=== PATIENT | female | born 1940 | race Caucasian/White ===

== ENCOUNTER 2018-06-02 13:50 | Observation (INO) | payer MEDICARE, BC ==
[2018-06-02] MEDS ORDERED: Promethazine 25 MG in Sodium Chloride 0.9% 50 ML IV STA (14:12)
[2018-06-02] MEDS: Sodium Chloride 0.9% 1,000 ML IV SCH (14:22)
[2018-06-02 14:44] LABS: CHLORIDE,CL 107 mEq/L (98-106); SODIUM,NA 143 mEq/L (136-145)
[2018-06-02] MEDS ORDERED: Promethazine 12.5 MG in Sodium Chloride 0.9% 50 ML IV PRN (15:41)
[2018-06-02] MEDS: Meclizine 12.5 MG Tab PO PRN ×2 (16:14→20:13)
[2018-06-02] MEDS ORDERED: Warfarin 2.5 MG Tab ONE (16:29)
[2018-06-02] MEDS ORDERED: Warfarin 5 MG Tab **OWN MED PO ONE (17:00)
--- NOTE | 2018-06-02 18:04 | EDM.PDOC ---
ED HPI GENERAL MEDICAL PROBLEM - General Chief Complaint: General Stated Complaint: dizziness, vomiting Time Seen by Provider: 06/02/18 14:34 Source of Information: Reports: Patient History Limitations: Reports: No Limitations - History of Present Illness INITIAL COMMENTS - FREE TEXT/NARRATIVE: Tabatha is a 78 yo female who presents to the ER via [facility] with complaints of dizziness, nausea, and vomiting. She admits to chronic dizziness but today after lunch it has progressively worsened. She states she feels as if the room is spinning. She states she continues to dry heave from the dizziness. Denies any chest discomfort, palpitations in her chest, shortness of breath, headache or any other contributory symptoms. See ROS. Onset: Today Duration: Getting Worse Location: Reports: Head Associated Symptoms: Reports: Nausea/Vomiting. 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 Zofran 4 mg IV x 2. - Related Data Allergies Allergy/AdvReac Type Severity Reaction Status Date / Time No Known Allergies Allergy Verified 06/02/18 13:49 Home Meds: Home Meds Levothyroxine 112 mcg PO DAILY 04/07/14 [History] Furosemide [Lasix] 20 mg PO DAILY 04/30/14 [History] Cholecalciferol (Vitamin D3) [Vitamin D3] 5,000 units PO DAILY 04/16/15 [History ] atorvaSTATin Calcium [Atorvastatin Calcium] 10 mg PO BEDTIME 04/16/15 [History] Aspirin [Adult Low Dose Aspirin EC] 81 mg PO DAILY 04/25/16 [History] Metoprolol Succinate 25 mg PO DAILY 04/25/16 [History] Warfarin [Coumadin] 2.5 mg PO DAILY 09/02/16 [History] Cetirizine HCl [Zyrtec] 10 mg PO DAILY PRN 06/02/18 [History] Losartan [Cozaar] 25 mg PO DAILY 06/02/18 [History] Vortioxetine Hydrobromide [Trintellix] 10 mg PO DAILY 06/02/18 [History] Past Medical History HEENT History: Reports: Cataract Cardiovascular History: Reports: Blood Clots/VTE/DVT, Hypertension Respiratory History: Reports: PE Genitourinary History: Reports: Urinary Incontinence Musculoskeletal History: Reports: Arthritis Other Musculoskeletal History: R knee Endocrine/Metabolic History: Reports: Hyperthyroidism - Past Surgical History HEENT Surgical History: Reports: Cataract Surgery Cardiovascular Surgical History: Reports: Coronary Artery Stent Musculoskeletal Surgical History: Reports: Knee Replacement Social & Family History - Family History Family Medical History: Noncontributory - Tobacco Use Smoking Status *Q: Former Smoker Used Tobacco, but Quit: Yes Month/Year Tobacco Last Used: unknown - Recreational Drug Use Recreational Drug Use: No ED ROS GENERAL - Review of Systems Review Of Systems: See Below Constitutional: Denies: Fever, Chills, Decreased Appetite HEENT: Reports: Vertigo. Denies: Ear Discharge, Ear Pain, Sinus Problem, Vision Change Respiratory: Reports: No Symptoms Cardiovascular: Reports: No Symptoms. Denies: Chest Pain, Lightheadedness, Palpitations, Syncope GI/Abdominal: Reports: No Symptoms : Reports: No Symptoms. Denies: Discharge, Dysuria, Hematuria, Urgency Musculoskeletal: Reports: No Symptoms Neurological: Denies: Confusion, Headache, Numbness, Paresthesia, Syncope, Tingling Psychiatric: Reports: No Symptoms ED EXAM, GENERAL - Physical Exam Exam: See Below General Appearance: Alert, Mild Distress Eye Exam: Bilateral Eye: EOMI, Normal Inspection, PERRL Ears: Normal External Exam, Normal Canal, Hearing Grossly Normal, Normal TMs Nose: Normal Inspection, No Blood Throat/Mouth: Normal Inspection, Normal Gums, Normal Oropharynx, Normal Voice, No Airway Compromise Head: Atraumatic, Normocephalic Neck: Normal Inspection, Supple Respiratory/Chest: No Respiratory Distress, Lungs Clear, Normal Breath Sounds, No Accessory Muscle Use Cardiovascular: Regular Rate, Rhythm, No Murmur Peripheral Pulses: 2+: Posterior Tibial (L), Posterior Tibial (R), Dorsalis Pedis (L), Dorsalis Pedis (R) GI/Abdominal: Normal Bowel Sounds, Soft, No Organomegaly, No Distention Neurological: Alert, Oriented, CN II-XII Intact, Normal Cognition, No Motor/ Sensory Deficits Psychiatric: Normal Affect, Normal Mood Skin Exam: Warm, Dry, Intact, Normal Color, No Rash EKG INTERPRETATION Rhythm: NSR Course - Vital Signs Last Recorded V/S: Last Vital Signs Temp 97.7 F 06/02/18 16:00 Pulse 68 06/02/18 16:00 Resp 16 06/02/18 16:00 BP 115/48 L 06/02/18 16:00 Pulse Ox 98 06/02/18 16:00 - Orders/Labs/Meds Orders: Active Orders 24 hr Category Date Time Status Patient Status [ADT] Routine ADT 06/02/18 15:41 Active Cardiac Monitoring [RC] 0800,1999 Care 06/02/18 15:41 Active Oxygen Therapy [RC] .PRN Care 06/02/18 15:41 Active Up With Assistance [RC] .PRN Care 06/02/18 15:41 Active Vital Signs [RC] 0000,0400,0800,1200,1600,1999 Care 06/02/18 15:41 Active PT Evaluation and Treatment [CONS] Routine Cons 06/02/18 15:41 Active 2 Gram Sodium Diet [DIET] Diet 06/02/18 Dinner Active UA W/MICROSCOPIC [URIN] Stat Lab 06/02/18 14:13 Ordered Promethazine [Phenergan] 12.5 mg Med 06/02/18 15:41 Active Sodium Chloride 0.9% [Normal Saline] 50 ml IV Q6H Sodium Chloride 0.9% [Normal Saline] 1,000 ml Med 06/02/18 14:15 Active IV ASDIRECTED Resuscitation Status Routine Resus Stat 06/02/18 15:33 Ordered Medication Orders Aspirin (Halfprin) 81 mg PO DAILY [facility] Atorvastatin Calcium (Lipitor) 10 mg PO BEDTIME [facility] Furosemide (Lasix) 20 mg PO DAILY [facility] Sodium Chloride (Normal Saline) 1,000 mls @ 75 mls/hr IV ASDIRECTED [facility] Last Admin: 06/02/18 14:22 Dose: 75 mls/hr Promethazine HCl 12.5 mg/ (Sodium Chloride) 50.5 mls @ 100 mls/hr IV Q6H PRN PRN Reason: Nausea/Vomiting Levothyroxine Sodium (Levothyroxine) 112 mcg PO ACBRK [facility] Losartan Potassium (Cozaar) 25 mg PO DAILY [facility] Meclizine HCl (Antivert) 25 mg PO TID PRN PRN Reason: Dizziness Last Admin: 06/02/18 16:14 Dose: 25 mg Metoprolol Succinate (Toprol Xl) 25 mg PO DAILY [facility] Vortioxetine Hydrobromide ( Trintellix) 10 Mg Tab Own Med 0 mg PO DAILY [facility] Vitamin D 5000 Unit (Softgels Own Med) 0 each PO DAILY [facility] Warfarin Sodium (Coumadin) 2.5 mg PO DAILY@1200 [facility] Labs: Laboratory Tests 06/02/18 06/02/18 06/02/18 Range/Units 14:20 14:22 14:22 WBC 7.5 (5.0-10.0) 10^3/uL RBC 4.21 (4.00-5.50) 10^6/uL Hgb 12.3 (12.0-16.0) g/dL Hct 38.5 (37.0-47.0) % MCV 91.4 (82.0-94.0) fL MCH 29.2 (27.0-32.0) pg MCHC 31.9 L (33.0-38.0) g/dL RDW Coeff of Ltey 16.5 H (11.0-15.0) % Plt Count 242 (150-400) 10^3/uL Add Manual Diff Yes Neutrophils % (Manual) 67 (35-85) % Lymphocytes % (Manual) 25 (21-55) % Monocytes % (Manual) 8 (2-12) % Absolute Neutrophils 5.03 (1.80-7.00) 10^3/uL Lymphocytes # (Manual) 1.88 (1.00-4.80) 10^3/uL Monocytes # (Manual) 0.60 (0.00-0.80) 10^3/uL PT (9.7-12.3) SEC INR (0.92-1.18) Sodium 143 (136-145) mEq/L Potassium 3.9 (3.5-5.0) mEq/L Chloride 107 H (98-106) mEq/L Carbon Dioxide 24 (21-32) mmol/L BUN 35 H (7-18) mg/dL Creatinine 1.3 H (0.6-1.0) mg/dL Est Cr Clr Drug Dosing 27.75 mL/min Estimated GFR (MDRD) 40 L (>=60) mL/min Glucose 135 H (75-99) mg/dL Calcium 9.1 (8.4-10.1) mg/dL Total Bilirubin 1.0 (0.0-1.0) mg/dL AST 20 (15-37) U/L ALT 25 (12-78) U/L Alkaline Phosphatase 107 (46-116) U/L Creatine Kinase 34 (21-215) U/L Troponin I < 0.017 (0.00-0.06) ng/mL C-Reactive Protein 0.8 (0.2-0.8) mg/dL Total Protein 7.5 (6.4-8.2) g/dL Albumin 3.6 (3.4-5.0) g/dL Free T4 1.5 (0.8-1.6) ng/dL TSH, Ultra Sensitive 0.48 (0.36-5.60) uIU/mL 06/02/18 Range/Units 14:42 WBC (5.0-10.0) 10^3/uL RBC (4.00-5.50) 10^6/uL Hgb (12.0-16.0) g/dL Hct (37.0-47.0) % MCV (82.0-94.0) fL MCH (27.0-32.0) pg MCHC (33.0-38.0) g/dL RDW Coeff of Lety (11.0-15.0) % Plt Count (150-400) 10^3/uL Add Manual Diff Neutrophils % (Manual) (35-85) % Lymphocytes % (Manual) (21-55) % Monocytes % (Manual) (2-12) % Absolute Neutrophils (1.80-7.00) 10^3/uL Lymphocytes # (Manual) (1.00-4.80) 10^3/uL Monocytes # (Manual) (0.00-0.80) 10^3/uL PT 14.4 H (9.7-12.3) SEC INR 1.42 H (0.92-1.18) Sodium (136-145) mEq/L Potassium (3.5-5.0) mEq/L Chloride (98-106) mEq/L Carbon Dioxide (21-32) mmol/L BUN (7-18) mg/dL Creatinine (0.6-1.0) mg/dL Est Cr Clr Drug Dosing mL/min Estimated GFR (MDRD) (>=60) mL/min Glucose (75-99) mg/dL Calcium (8.4-10.1) mg/dL Total Bilirubin (0.0-1.0) mg/dL AST (15-37) U/L ALT (12-78) U/L Alkaline Phosphatase (46-116) U/L Creatine Kinase (21-215) U/L Troponin I (0.00-0.06) ng/mL C-Reactive Protein (0.2-0.8) mg/dL Total Protein (6.4-8.2) g/dL Albumin (3.4-5.0) g/dL Free T4 (0.8-1.6) ng/dL TSH, Ultra Sensitive (0.36-5.60) uIU/mL Meds: Medications Generic Name Dose Route Start Last Admin Trade Name Freq PRN Reason Stop Dose Admin Aspirin 81 mg 06/03/18 08:00 Halfprin PO DAILY [facility] Atorvastatin Calcium 10 mg 06/02/18 20:00 Lipitor PO BEDTIME [facility] Furosemide 20 mg 06/03/18 08:00 Lasix PO DAILY [facility] Sodium Chloride 1,000 mls @ 75 mls/hr 06/02/18 14:15 06/02/18 14:22 Normal Saline IV 75 mls/hr ASDIRECTED [facility] Administration Promethazine HCl 12.5 mg/ 50.5 mls @ 100 mls/hr 06/02/18 15:41 Sodium Chloride IV Q6H PRN Nausea/Vomiting Levothyroxine Sodium 112 mcg 06/03/18 07:00 Levothyroxine PO ACBRK [facility] Losartan Potassium 25 mg 06/03/18 08:00 Cozaar PO DAILY [facility] Meclizine HCl 25 mg 06/02/18 15:48 06/02/18 16:14 Antivert PO 25 mg TID PRN Administration Dizziness Metoprolol Succinate 25 mg 06/03/18 08:00 Toprol Xl PO DAILY [facility] Vortioxetine 0 mg 06/03/18 08:00 Hydrobromide ( PO Trintellix) 10 Mg DAILY [facility] Tab Own Med Vitamin D 5000 Unit 0 each 06/03/18 08:00 Softgels Own Med PO DAILY [facility] Warfarin Sodium 2.5 mg 06/03/18 12:00 Coumadin PO DAILY@1200 [facility] Discontinued Medications Generic Name Dose Route Start Last Admin Trade Name Freq PRN Reason Stop Dose Admin Promethazine HCl 25 mg/ Sodium 51 mls @ 100 mls/hr 06/02/18 14:12 06/02/18 14 :27 Chloride IV 06/02/18 14:42 100 mls/hr NOW STA Administration Warfarin Sodium 2.5 mg 06/02/18 17:00 06/02/18 16:51 Coumadin PO 06/02/18 17:01 2.5 mg ONETIME ONE Administration Warfarin Sodium Confirm 06/02/18 16:29 06/02/18 16:51 Coumadin Administered 06/02/18 16:30 2.5 mg Dose Administration 2.5 mg .ROUTE .STK-MED ONE Departure - Departure Time of Disposition: 18:14 Disposition: Refer to Observation Clinical Impression: Vertigo - Discharge Information - Problem List & Annotations (1) Vertigo SNOMED Code(s): 817613881 Code(s): R42 - DIZZINESS AND GIDDINESS Status: Acute Current Visit: Yes - My Orders Last 24 Hours: My Active Orders 06/02/18 14:13 UA W/MICROSCOPIC [URIN] Stat 06/02/18 14:15 Sodium Chloride 0.9% [Normal Saline] 1,000 ml IV ASDIRECTED 06/02/18 15:33 Resuscitation Status Routine 06/02/18 15:41 Patient Status [ADT] Routine Cardiac Monitoring [RC] 0800,2000 Oxygen Therapy [RC] .PRN Up With Assistance [RC] .PRN Vital Signs [RC] 0000,0400,0800,1200,1600,2000 PT Evaluation and Treatment [CONS] Routine Promethazine [Phenergan] 12.5 mg Sodium Chloride 0.9% [Normal Saline] 50 ml IV Q6H 06/02/18 Dinner 2 Gram Sodium Diet [DIET] - Assessment/Plan Admission H&P: Please use this note as an admission H&P Last 24 Hours: My Active Orders 06/02/18 14:13 UA W/MICROSCOPIC [URIN] Stat 06/02/18 14:15 Sodium Chloride 0.9% [Normal Saline] 1,000 ml IV ASDIRECTED 06/02/18 15:33 Resuscitation Status Routine 06/02/18 15:41 Patient Status [ADT] Routine Cardiac Monitoring [RC] 0800,2000 Oxygen Therapy [RC] .PRN Up With Assistance [RC] .PRN Vital Signs [RC] 0000,0400,0800,1200,1600,2000 PT Evaluation and Treatment [CONS] Routine Promethazine [Phenergan] 12.5 mg Sodium Chloride 0.9% [Normal Saline] 50 ml IV Q6H 06/02/18 Dinner 2 Gram Sodium Diet [DIET] Plan: Cardiac work up negative. Will admit to Dr. Patel's services under observation for vertigo. Telemetry ordered. Will initiate Meclizine and canalith reposition. IV fluids at 75ml's/hr.
[2018-06-02] MEDS: atorvaSTATin 10 MG Tab **OWN MED PO SCH (20:10)
[2018-06-03] MEDS: Sodium Chloride 0.9% 1,000 ML IV SCH (03:19)
[2018-06-03] MEDS: Levothyroxine 112 MCG Tab **OWN MED PO SCH (06:06)
[2018-06-03] MEDS ORDERED: Furosemide 20 MG Tab PO SCH (08:00)
[2018-06-03] MEDS: Meclizine 12.5 MG Tab PO PRN (08:22)
[2018-06-03] MEDS: Losartan 25 MG Tab **OWN MED PO SCH (08:24)
[2018-06-03] MEDS: Aspirin 81 MG Tab.EC **OWN MED PO SCH (08:24)
[2018-06-03] MEDS: VITAMIN D 5000 UNIT PO SCH (08:25)
[2018-06-03] MEDS: Metoprolol Succinate 25 MG Tab.ER **OWN MED PO SCH (08:25)
[2018-06-03] MEDS: VORTIOXETINE HYDROBROMIDE 10 MG PO SCH (08:26)
[2018-06-03] MEDS: Warfarin 5 MG Tab **OWN MED PO SCH (11:37)
--- NOTE | 2018-06-03 14:43 | PCM.PN ---
- General Info Date of Service: 06/03/18 Functional Status: Reports: Pain Controlled - Review of Systems General: Denies: Fever HEENT: Reports: No Symptoms Pulmonary: Denies: Shortness of Breath, Cough Cardiovascular: Denies: Chest Pain Gastrointestinal: Denies: Abdominal Pain, Nausea, Vomiting Neurological: Reports: Dizziness (reports dizziness is markedly decreased from admit. denies any other new concerns.) - Patient Data Vitals - Most Recent: Last Vital Signs Temp 37.1 C 06/03/18 12:00 Pulse 76 06/03/18 12:00 Resp 16 06/03/18 12:00 BP 110/62 06/03/18 12:00 Pulse Ox 95 06/03/18 12:00 Weight - Most Recent: 65.771 kg I&O - Last 24 Hours: Intake & Output 06/02/18 06/03/18 06/03/18 22:59 06:59 14:59 Intake Total 971 Balance 971 Lab Results Last 24 Hours: Laboratory Results - last 24 hr 06/02/18 06/02/18 06/02/18 Range/Units 14:20 14:22 14:22 WBC 7.5 (5.0-10.0) 10^3/uL RBC 4.21 (4.00-5.50) 10^6/uL Hgb 12.3 (12.0-16.0) g/dL Hct 38.5 (37.0-47.0) % MCV 91.4 (82.0-94.0) fL MCH 29.2 (27.0-32.0) pg MCHC 31.9 L (33.0-38.0) g/dL RDW Coeff of Lety 16.5 H (11.0-15.0) % Plt Count 242 (150-400) 10^3/uL Add Manual Diff Yes Neutrophils % (Manual) 67 (35-85) % Lymphocytes % (Manual) 25 (21-55) % Monocytes % (Manual) 8 (2-12) % Absolute Neutrophils 5.03 (1.80-7.00) 10^3/uL Lymphocytes # (Manual) 1.88 (1.00-4.80) 10^3/uL Monocytes # (Manual) 0.60 (0.00-0.80) 10^3/uL PT (9.7-12.3) SEC INR (0.92-1.18) Sodium 143 (136-145) mEq/L Potassium 3.9 (3.5-5.0) mEq/L Chloride 107 H (98-106) mEq/L Carbon Dioxide 24 (21-32) mmol/L BUN 35 H (7-18) mg/dL Creatinine 1.3 H (0.6-1.0) mg/dL Est Cr Clr Drug Dosing 27.75 mL/min Estimated GFR (MDRD) 40 L (>=60) mL/min Glucose 135 H (75-99) mg/dL Calcium 9.1 (8.4-10.1) mg/dL Total Bilirubin 1.0 (0.0-1.0) mg/dL AST 20 (15-37) U/L ALT 25 (12-78) U/L Alkaline Phosphatase 107 (46-116) U/L Creatine Kinase 34 (21-215) U/L Troponin I < 0.017 (0.00-0.06) ng/mL C-Reactive Protein 0.8 (0.2-0.8) mg/dL Total Protein 7.5 (6.4-8.2) g/dL Albumin 3.6 (3.4-5.0) g/dL Free T4 1.5 (0.8-1.6) ng/dL TSH, Ultra Sensitive 0.48 (0.36-5.60) uIU/mL Urine Color (YELLOW) Urine Appearance (CLEAR) Urine pH (4.5-8.0) Ur Specific Carlyle (1.003-1.020) Urine Protein (NEGATIVE) mg/dL Urine Glucose (UA) (NEGATIVE) mg/dL Urine Ketones (NEGATIVE) mg/dL Urine Occult Blood (NEGATIVE) Urine Nitrite (NEGATIVE) Urine Bilirubin (NEGATIVE) Urine Urobilinogen (0.2-1.0) EU/dL Ur Leukocyte Esterase (NEGATIVE) Urine RBC (0-5) /HPF Urine WBC (0-5) /HPF Ur Epithelial Cells (NOT SEEN) /HPF Amorphous Sediment (NOT SEEN) /HPF 06/02/18 06/02/18 06/03/18 Range/Units 14:42 17:30 06:55 WBC (5.0-10.0) 10^3/uL RBC (4.00-5.50) 10^6/uL Hgb (12.0-16.0) g/dL Hct (37.0-47.0) % MCV (82.0-94.0) fL MCH (27.0-32.0) pg MCHC (33.0-38.0) g/dL RDW Coeff of Lety (11.0-15.0) % Plt Count (150-400) 10^3/uL Add Manual Diff Neutrophils % (Manual) (35-85) % Lymphocytes % (Manual) (21-55) % Monocytes % (Manual) (2-12) % Absolute Neutrophils (1.80-7.00) 10^3/uL Lymphocytes # (Manual) (1.00-4.80) 10^3/uL Monocytes # (Manual) (0.00-0.80) 10^3/uL PT 14.4 H 16.0 H (9.7-12.3) SEC INR 1.42 H 1.59 H (0.92-1.18) Sodium (136-145) mEq/L Potassium (3.5-5.0) mEq/L Chloride (98-106) mEq/L Carbon Dioxide (21-32) mmol/L BUN (7-18) mg/dL Creatinine (0.6-1.0) mg/dL Est Cr Clr Drug Dosing mL/min Estimated GFR (MDRD) (>=60) mL/min Glucose (75-99) mg/dL Calcium (8.4-10.1) mg/dL Total Bilirubin (0.0-1.0) mg/dL AST (15-37) U/L ALT (12-78) U/L Alkaline Phosphatase (46-116) U/L Creatine Kinase (21-215) U/L Troponin I (0.00-0.06) ng/mL C-Reactive Protein (0.2-0.8) mg/dL Total Protein (6.4-8.2) g/dL Albumin (3.4-5.0) g/dL Free T4 (0.8-1.6) ng/dL TSH, Ultra Sensitive (0.36-5.60) uIU/mL Urine Color Yellow (YELLOW) Urine Appearance Slightly cloudy (CLEAR) Urine pH 5.5 (4.5-8.0) Ur Specific Carlyle 1.025 H (1.003-1.020) Urine Protein Negative (NEGATIVE) mg/dL Urine Glucose (UA) Negative (NEGATIVE) mg/dL Urine Ketones Trace H (NEGATIVE) mg/dL Urine Occult Blood Trace-lysed H (NEGATIVE) Urine Nitrite Negative (NEGATIVE) Urine Bilirubin Negative (NEGATIVE) Urine Urobilinogen 0.2 (0.2-1.0) EU/dL Ur Leukocyte Esterase Negative (NEGATIVE) Urine RBC Not seen (0-5) /HPF Urine WBC Not seen (0-5) /HPF Ur Epithelial Cells Occasional H (NOT SEEN) /HPF Amorphous Sediment Many H (NOT SEEN) /HPF Med Orders - Current: Current Medications Aspirin (Halfprin) 81 mg PO DAILY [facility] Last Admin: 06/03/18 08:24 Dose: 81 mg Atorvastatin Calcium (Lipitor) 10 mg PO BEDTIME [facility] Last Admin: 06/02/18 20:10 Dose: 10 mg Furosemide (Lasix) 20 mg PO DAILY [facility] Last Admin: 06/03/18 08:24 Dose: 20 mg Sodium Chloride (Normal Saline) 1,000 mls @ 75 mls/hr IV ASDIRECTED [facility] Last Admin: 06/03/18 03:19 Dose: 75 mls/hr Promethazine HCl 12.5 mg/ (Sodium Chloride) 50.5 mls @ 100 mls/hr IV Q6H PRN PRN Reason: Nausea/Vomiting Levothyroxine Sodium (Levothyroxine) 112 mcg PO ACBRK [facility] Last Admin: 06/03/18 06:06 Dose: 112 mcg Losartan Potassium (Cozaar) 25 mg PO DAILY [facility] Last Admin: 06/03/18 08:24 Dose: 25 mg Meclizine HCl (Antivert) 25 mg PO TID PRN PRN Reason: Dizziness Last Admin: 06/03/18 08:22 Dose: 25 mg Metoprolol Succinate (Toprol Xl) 25 mg PO DAILY [facility] Last Admin: 06/03/18 08:25 Dose: 25 mg Vortioxetine Hydrobromide ( Trintellix) 10 Mg Tab Own Med 0 mg PO DAILY [facility] Last Admin: 06/03/18 08:26 Dose: 10 mg Vitamin D 5000 Unit (Softgels Own Med) 0 each PO DAILY [facility] Last Admin: 06/03/18 08:25 Dose: 1 each Warfarin Sodium (Coumadin) 2.5 mg PO DAILY@1200 [facility] Last Admin: 06/03/18 11:37 Dose: 2.5 mg Discontinued Medications Furosemide (Lasix) 20 mg PO DAILY [facility] Promethazine HCl 25 mg/ Sodium (Chloride) 51 mls @ 100 mls/hr IV NOW STA Stop: 06/02/18 14:42 Last Admin: 06/02/18 14:27 Dose: 100 mls/hr Warfarin Sodium (Coumadin) 2.5 mg PO ONETIME ONE Stop: 06/02/18 17:01 Last Admin: 06/02/18 16:51 Dose: 2.5 mg Warfarin Sodium (Coumadin) Confirm Administered Dose 2.5 mg .ROUTE .STK-MED ONE Stop: 06/02/18 16:30 Last Admin: 06/02/18 16:51 Dose: 2.5 mg - Exam General: Alert, Oriented HEENT: Pupils Equal, Pupils Reactive, EOMI Lungs: Normal Respiratory Effort Cardiovascular: Regular Rate, Regular Rhythm Peripheral Pulses: 2+: Radial (L), Radial (R) Skin: Warm, Dry, Intact Neurological: No New Focal Deficit Psy/Mental Status: Alert, Normal Affect - Problem List Review Problem List Initiated/Reviewed/Updated: Yes - Assessment Assessment:: Dizziness patient reports significant improvement of dizziness. reports that she does not yet feel safe to DC home but thinks she will be tomorrow. Continue to monitor. Repeat exam in AM.
[2018-06-03] MEDS: atorvaSTATin 10 MG Tab **OWN MED PO SCH (19:18)
[2018-06-04 07:23] VITALS: BP 134/73
[2018-06-04] MEDS: VORTIOXETINE HYDROBROMIDE 10 MG PO SCH (08:16)
[2018-06-04] MEDS: VITAMIN D 5000 UNIT PO SCH (08:16)
[2018-06-04] MEDS: Aspirin 81 MG Tab.EC **OWN MED PO SCH (08:17)
[2018-06-04] MEDS: Losartan 25 MG Tab **OWN MED PO SCH (08:17)
[2018-06-04] MEDS: Metoprolol Succinate 25 MG Tab.ER **OWN MED PO SCH (08:18)
[2018-06-04] MEDS: Levothyroxine 112 MCG Tab **OWN MED PO SCH (08:18)
--- NOTE | 2018-06-04 08:45 | PCM.PN ---
- General Info Date of Service: 06/04/18 Functional Status: Reports: Pain Controlled - Review of Systems General: Reports: No Symptoms Pulmonary: Reports: No Symptoms Cardiovascular: Reports: No Symptoms Gastrointestinal: Reports: No Symptoms Musculoskeletal: Reports: No Symptoms Neurological: Reports: Dizziness, Other (reports her dizziness is present however significantly improved. she reports that the dizziness is minimal and would like to DC home) - Patient Data Vitals - Most Recent: Last Vital Signs Temp 36.5 C 06/04/18 07:22 Pulse 64 06/04/18 08:18 Resp 18 06/04/18 07:22 BP 134/73 06/04/18 08:18 Pulse Ox 97 06/04/18 07:22 Weight - Most Recent: 65.771 kg Med Orders - Current: Current Medications Aspirin (Halfprin) 81 mg PO DAILY [facility] Last Admin: 06/04/18 08:17 Dose: 81 mg Atorvastatin Calcium (Lipitor) 10 mg PO BEDTIME [facility] Last Admin: 06/03/18 19:18 Dose: 10 mg Furosemide (Lasix) 20 mg PO DAILY [facility] Last Admin: 06/04/18 08:17 Dose: 20 mg Promethazine HCl 12.5 mg/ (Sodium Chloride) 50.5 mls @ 100 mls/hr IV Q6H PRN PRN Reason: Nausea/Vomiting Levothyroxine Sodium (Levothyroxine) 112 mcg PO ACBRK [facility] Last Admin: 06/04/18 08:18 Dose: 112 mcg Losartan Potassium (Cozaar) 25 mg PO DAILY [facility] Last Admin: 06/04/18 08:17 Dose: 25 mg Meclizine HCl (Antivert) 25 mg PO TID PRN PRN Reason: Dizziness Last Admin: 06/03/18 08:22 Dose: 25 mg Metoprolol Succinate (Toprol Xl) 25 mg PO DAILY [facility] Last Admin: 06/04/18 08:18 Dose: 25 mg Vortioxetine Hydrobromide ( Trintellix) 10 Mg Tab Own Med 0 mg PO DAILY [facility] Last Admin: 06/04/18 08:16 Dose: Not Given Vitamin D 5000 Unit (Softgels Own Med) 0 each PO DAILY [facility] Last Admin: 06/04/18 08:16 Dose: 1 each Warfarin Sodium (Coumadin) 2.5 mg PO DAILY@1200 [facility] Last Admin: 06/03/18 11:37 Dose: 2.5 mg Discontinued Medications Furosemide (Lasix) 20 mg PO DAILY [facility] Promethazine HCl 25 mg/ Sodium (Chloride) 51 mls @ 100 mls/hr IV NOW STA Stop: 06/02/18 14:42 Last Admin: 06/02/18 14:27 Dose: 100 mls/hr Sodium Chloride (Normal Saline) 1,000 mls @ 75 mls/hr IV ASDIRECTED [facility] Last Admin: 06/03/18 03:19 Dose: 75 mls/hr Warfarin Sodium (Coumadin) 2.5 mg PO ONETIME ONE Stop: 06/02/18 17:01 Last Admin: 06/02/18 16:51 Dose: 2.5 mg Warfarin Sodium (Coumadin) Confirm Administered Dose 2.5 mg .ROUTE .STK-MED ONE Stop: 06/02/18 16:30 Last Admin: 06/02/18 16:51 Dose: 2.5 mg - Exam General: Alert, Oriented Lungs: Normal Respiratory Effort Cardiovascular: Regular Rate, Regular Rhythm Peripheral Pulses: 2+: Radial (L), Radial (R) Skin: Warm, Dry, Intact Neurological: No New Focal Deficit, Normal Gait, Normal Speech, Strength Equal Bilateral Psy/Mental Status: Alert, Normal Affect - Problem List Review Problem List Initiated/Reviewed/Updated: Yes - My Orders Last 24 Hours: My Active Orders 06/04/18 08:41 Ready for Discharge [RC] PER UNIT ROUTINE - Assessment Assessment:: Dizziness 06/03/18 patient reports significant improvement of dizziness. reports that she does not yet feel safe to DC home but thinks she will be tomorrow. Continue to monitor. Repeat exam in AM. 06/04/18 patient reports the she feels her dizziness has minimized to the point where she feels safe to DC home. advised patient to rest, hydrate, fu with PCP in 3-5 days, go to closest ER if change or worse. patient reports understanding and agreement with plan. DC home stable.
[2018-06-04] MEDS: Warfarin 5 MG Tab **OWN MED PO SCH (11:31)
--- NOTE | 2018-06-05 08:09 | PCM.DCSUM1 ---
Discharge Summary - Hospital Course Free Text/Narrative:: dizziness improved to tolerable level. Advised patient to rest, hydrate, avoid driving or heavy machinery operation until condition resolved, fu with PCP in 1- 3 days, go to ER if change or worse. Patient reports understanding and agreement with plan. DC home stable in care of family. Diagnosis: Stroke: No - Discharge Data Discharge Date: 06/04/18 Discharge Disposition: Home, Self-Care 01 Condition: Good - Patient Summary/Data Consults: Consultations 06/02/18 15:41 PT Evaluation and Treatment [CONS] Routine - Patient Instructions Diet: Usual Diet as Tolerated Activity: As Tolerated Driving: Do Not Drive Showering/Bathing: May Shower - Discharge Plan *PRESCRIPTION DRUG MONITORING PROGRAM REVIEWED*: Not Applicable *COPY OF PRESCRIPTION DRUG MONITORING REPORT IN PATIENT LIDIA: Not Applicable Home Medications: Home Meds Levothyroxine 112 mcg PO DAILY 04/07/14 [History] Furosemide [Lasix] 20 mg PO DAILY 04/30/14 [History] Cholecalciferol (Vitamin D3) [Vitamin D3] 5,000 units PO DAILY 04/16/15 [History ] atorvaSTATin Calcium [Atorvastatin Calcium] 10 mg PO BEDTIME 04/16/15 [History] Aspirin [Adult Low Dose Aspirin EC] 81 mg PO DAILY 04/25/16 [History] Metoprolol Succinate 25 mg PO DAILY 04/25/16 [History] Warfarin [Coumadin] 2.5 mg PO DAILY 09/02/16 [History] Cetirizine HCl [Zyrtec] 10 mg PO DAILY PRN 06/02/18 [History] Losartan [Cozaar] 25 mg PO DAILY 06/02/18 [History] Vortioxetine Hydrobromide [Trintellix] 10 mg PO DAILY 06/02/18 [History] Patient Handouts: Vertigo Forms: ED Department Discharge Referrals: PCP,None [Primary Care Provider] - - General Info Date of Service: 06/04/18 Functional Status: Reports: Pain Controlled - Review of Systems General: Reports: No Symptoms Pulmonary: Reports: No Symptoms Cardiovascular: Reports: No Symptoms Gastrointestinal: Reports: No Symptoms Neurological: Reports: Other (mild dizziness, improved from previous encounter, denies other neuro complaints.) - Patient Data Vitals - Most Recent: Last Vital Signs Temp 36.5 C 06/04/18 07:22 Pulse 64 06/04/18 08:18 Resp 18 06/04/18 07:22 BP 134/73 06/04/18 08:18 Pulse Ox 97 06/04/18 07:22 Weight - Most Recent: 65.771 kg Med Orders - Current: Current Medications Discontinued Medications Aspirin (Halfprin) 81 mg PO DAILY [facility] Last Admin: 06/04/18 08:17 Dose: 81 mg Atorvastatin Calcium (Lipitor) 10 mg PO BEDTIME [facility] Last Admin: 06/03/18 19:18 Dose: 10 mg Furosemide (Lasix) 20 mg PO DAILY [facility] Furosemide (Lasix) 20 mg PO DAILY [facility] Last Admin: 06/04/18 08:17 Dose: 20 mg Promethazine HCl 25 mg/ Sodium (Chloride) 51 mls @ 100 mls/hr IV NOW STA Stop: 06/02/18 14:42 Last Admin: 06/02/18 14:27 Dose: 100 mls/hr Sodium Chloride (Normal Saline) 1,000 mls @ 75 mls/hr IV ASDIRECTED [facility] Last Admin: 06/03/18 03:19 Dose: 75 mls/hr Promethazine HCl 12.5 mg/ (Sodium Chloride) 50.5 mls @ 100 mls/hr IV Q6H PRN PRN Reason: Nausea/Vomiting Levothyroxine Sodium (Levothyroxine) 112 mcg PO ACBRK [facility] Last Admin: 06/04/18 08:18 Dose: 112 mcg Losartan Potassium (Cozaar) 25 mg PO DAILY [facility] Last Admin: 06/04/18 08:17 Dose: 25 mg Meclizine HCl (Antivert) 25 mg PO TID PRN PRN Reason: Dizziness Last Admin: 06/03/18 08:22 Dose: 25 mg Metoprolol Succinate (Toprol Xl) 25 mg PO DAILY [facility] Last Admin: 06/04/18 08:18 Dose: 25 mg Vortioxetine Hydrobromide ( Trintellix) 10 Mg Tab Own Med 0 mg PO DAILY [facility] Last Admin: 06/04/18 08:16 Dose: Not Given Vitamin D 5000 Unit (Softgels Own Med) 0 each PO DAILY [facility] Last Admin: 06/04/18 08:16 Dose: 1 each Warfarin Sodium (Coumadin) 2.5 mg PO DAILY@1200 [facility] Last Admin: 06/04/18 11:31 Dose: 2.5 mg Warfarin Sodium (Coumadin) 2.5 mg PO ONETIME ONE Stop: 06/02/18 17:01 Last Admin: 06/02/18 16:51 Dose: 2.5 mg Warfarin Sodium (Coumadin) Confirm Administered Dose 2.5 mg .ROUTE .STK-MED ONE Stop: 06/02/18 16:30 Last Admin: 06/02/18 16:51 Dose: 2.5 mg - Exam General: Reports: Alert, Oriented Lungs: Reports: Clear to Auscultation, Normal Respiratory Effort Cardiovascular: Reports: Regular Rate, Regular Rhythm GI/Abdominal Exam: Soft, Non-Tender Neurological: Reports: No New Focal Deficit, Normal Gait, Normal Speech, Normal Tone, Strength Equal Bilateral, Sensation Intact Psy/Mental Status: Reports: Alert, Normal Affect, Normal Mood
== END 2018-06-04 12:40 | disposition home or self-care (01) ==
LOC: CC.ED 13:50 → CC.MS 15:34
PROVIDERS: ADMIT Physician Assistant Medical; ATTEND Family Medicine
DX: R42 Dizziness and giddiness (principal); M19.90 Unspecified osteoarthritis, unspecified site; E03.9 Hypothyroidism, unspecified; I10 Essential (primary) hypertension; I26.99 Other pulmonary embolism without acute cor pulmonale; Z79.01 Long term (current) use of anticoagulants; Z79.82 Long term (current) use of aspirin; Z79.899 Other long term (current) drug therapy; Z87.891 Personal history of nicotine dependence
CPT/HCPCS: 36415; 80053; 81001; 82550; 84439; 84443; 84484; 85025; 85610; 86140; 93005; 96361; 96365; 96374; 96375; 97112-GP; 97161-GP; 99284; A9270-GY; G0378; J2550; J7030; J7050

== ENCOUNTER 2019-01-17 12:31 | Emergency (ER) | payer MEDICARE, BC ==
[2019-01-17 12:52] VITALS: BP 95/68
--- NOTE | 2019-01-17 14:02 | EDM.PDOC ---
ED HPI GENERAL MEDICAL PROBLEM - General Chief Complaint: General Stated Complaint: right knee pain Time Seen by Provider: 01/17/19 13:00 Source of Information: Reports: Patient History Limitations: Reports: No Limitations - History of Present Illness INITIAL COMMENTS - FREE TEXT/NARRATIVE: Tabatha is a 78 yo female who presents to the ED via private vehicle with complaints of right knee pain. She states she was walking in her house and accidentally tripped over a transition piece and fell on her right knee. States she felt directly onto her right knee and is concerned as she has had knee replacement to that knee about 4 years ago. She denies any other trauma. Denies any head or neck injury. She states that she seemed "fine" right away, but now trying to walk is very painful. r Onset: Today Location: Reports: Lower Extremity, Right Right Knee Pain Score (Numeric/FACES): 9 - Related Data Allergies Allergy/AdvReac Type Severity Reaction Status Date / Time No Known Allergies Allergy Verified 01/17/19 12:37 Home Meds: Home Meds Levothyroxine 112 mcg PO DAILY 04/07/14 [History] Furosemide [Lasix] 20 mg PO DAILY 04/30/14 [History] Cholecalciferol (Vitamin D3) [Vitamin D3] 5,000 units PO DAILY 04/16/15 [History ] atorvaSTATin Calcium [Atorvastatin Calcium] 10 mg PO BEDTIME 04/16/15 [History] Aspirin [Adult Low Dose Aspirin EC] 81 mg PO DAILY 04/25/16 [History] Metoprolol Succinate 25 mg PO DAILY 04/25/16 [History] Warfarin [Coumadin] 2.5 mg PO DAILY 09/02/16 [History] Cetirizine HCl [Zyrtec] 10 mg PO DAILY PRN 06/02/18 [History] Losartan [Cozaar] 25 mg PO DAILY 06/02/18 [History] Vortioxetine Hydrobromide [Trintellix] 10 mg PO DAILY 06/02/18 [History] Past Medical History HEENT History: Reports: Cataract Cardiovascular History: Reports: Blood Clots/VTE/DVT, Hypertension Respiratory History: Reports: PE Genitourinary History: Reports: Urinary Incontinence Musculoskeletal History: Reports: Arthritis Other Musculoskeletal History: R knee Endocrine/Metabolic History: Reports: Hyperthyroidism - Past Surgical History HEENT Surgical History: Reports: Cataract Surgery Cardiovascular Surgical History: Reports: Coronary Artery Stent Musculoskeletal Surgical History: Reports: Knee Replacement Social & Family History - Family History Family Medical History: Noncontributory - Tobacco Use Smoking Status *Q: Never Smoker Second Hand Smoke Exposure: No ED ROS GENERAL - Review of Systems Review Of Systems: See Below Constitutional: Reports: No Symptoms HEENT: Reports: No Symptoms Respiratory: Reports: No Symptoms Cardiovascular: Reports: No Symptoms GI/Abdominal: Reports: No Symptoms Musculoskeletal: Reports: Leg Pain, Joint Swelling Skin: Reports: No Symptoms Neurological: Reports: No Symptoms ED EXAM, GENERAL - Physical Exam Exam: See Below Exam Limited By: No Limitations General Appearance: Alert, No Apparent Distress Eye Exam: Bilateral Eye: Normal Inspection Head: Atraumatic, Normocephalic Extremities: Joint Swelling (trace of swelling to right knee. Discomfort with palpation over anterior aspect/patella. No discomfort with valgus or varus stretch. No instability. No significant bruising noted. ) Skin Exam: Warm, Dry, Intact, Normal Color. No: Ecchymosis Course - Vital Signs Last Recorded V/S: Last Vital Signs Temp 98.2 F 01/17/19 12:38 Pulse 66 01/17/19 12:38 Resp 18 01/17/19 12:38 BP 95/68 01/17/19 12:38 Pulse Ox 100 01/17/19 12:38 - Orders/Labs/Meds Orders: Active Orders 24 hr Category Date Time Status Knee 3V Rt [CR] Stat Exams 01/17/19 12:40 Taken Labs: Laboratory Tests 01/17/19 Range/Units 13:05 PT 16.2 H (9.7-12.3) SEC INR 1.62 H (0.92-1.18) Departure - Departure Time of Disposition: 14:04 Disposition: Home, Self-Care 01 Clinical Impression: Contusion of right knee Qualifiers: Encounter type: initial encounter Qualified Code(s): S80.01XA - Contusion of right knee, initial encounter - Discharge Information Referrals: PCP,Unknown [Primary Care Provider] - Additional Instructions: 1) X-rays were negative, no acute fractures or loosening of hardware noted. 2) Discussed symptomatic cares. 3) Recommend referral to physical therapy for ROM, etc... 4) May ice 20 minutes at a time, 5 times a day 5) Tylenol as discussed, no more than 4000mg in 24 hr period 6) INR is subtherapeutic; however, likely where Dr. Calero would like it. Recommend seeing Dr. Calero for follow up and discuss Coumadin dose 7) Encourage walking with walker while right knee is healing to prevent any further falls. 8) Return to ED if any concerns. - Problem List & Annotations (1) Contusion of right knee SNOMED Code(s): 28666721 Code(s): S80.01XA - CONTUSION OF RIGHT KNEE, INITIAL ENCOUNTER Status: Acute Current Visit: Yes Qualifiers: Encounter type: initial encounter Qualified Code(s): S80.01XA - Contusion of right knee, initial encounter - My Orders Last 24 Hours: My Active Orders 01/17/19 12:40 Knee 3V Rt [CR] Stat - Assessment/Plan Last 24 Hours: My Active Orders 01/17/19 12:40 Knee 3V Rt [CR] Stat Plan: See additional instructions.
== END 2019-01-17 13:50 | disposition home or self-care (01) ==
LOC: CC.ED 12:31
DX: S80.01XA Contusion of right knee, initial encounter (principal); I10 Essential (primary) hypertension; E05.90 Thyrotoxicosis, unspecified without thyrotoxic crisis or storm; W18.09XA Striking against other object with subsequent fall, initial encounter; Z79.899 Other long term (current) drug therapy
CPT/HCPCS: 36415; 73562-RT; 85610; 99283-25

== ENCOUNTER 2019-05-10 12:28 | Emergency (ER) | payer MEDICARE, BC ==
[2019-05-10 12:31] VITALS: BP 125/54; PULSE 71
--- NOTE | 2019-05-10 13:34 | EDM.PDOC ---
ED HPI GENERAL MEDICAL PROBLEM - General Chief Complaint: General Stated Complaint: HURT ARM Time Seen by Provider: 05/10/19 12:40 Source of Information: Reports: Patient History Limitations: Reports: No Limitations - History of Present Illness INITIAL COMMENTS - FREE TEXT/NARRATIVE: Pt presents after falling outside yesterday about 1630 and injured her right wrist. She did hit the right side of her head when she fell but had no LOC noted. She denies any neuro symptoms of headache, dizziness, visual changes. Denies any bleeding from head. She states that her right wrist hurts with any movement. She has noted swelling with it. No numbness or tingling noted. Denies any other injury. It is noted that she has been very noncompliant with her coumadin use and it was just increased 2 days ago. GCS = 15 on admission to ER. Onset Date: 05/09/19 Onset Time: 16:40 Location: Reports: Head, Upper Extremity, Right Associated Symptoms: Denies: Confusion, Headaches, Seizure Right Wrist Pain Score (Numeric/FACES): 6 - Related Data Allergies Allergy/AdvReac Type Severity Reaction Status Date / Time No Known Allergies Allergy Verified 05/10/19 12:32 Home Meds: Home Meds Levothyroxine 112 mcg PO DAILY 04/07/14 [History] Furosemide [Lasix] 20 mg PO DAILY 04/30/14 [History] Cholecalciferol (Vitamin D3) [Vitamin D3] 5,000 units PO DAILY 04/16/15 [History ] atorvaSTATin Calcium [Atorvastatin Calcium] 10 mg PO BEDTIME 04/16/15 [History] Aspirin [Adult Low Dose Aspirin EC] 81 mg PO DAILY 04/25/16 [History] Metoprolol Succinate 25 mg PO DAILY 04/25/16 [History] Warfarin [Coumadin] 5 mg PO DAILY 09/02/16 [History] Losartan [Cozaar] 25 mg PO DAILY 06/02/18 [History] Sertraline [Zoloft] 50 mg PO DAILY 05/10/19 [History] Past Medical History HEENT History: Reports: Cataract Cardiovascular History: Reports: Blood Clots/VTE/DVT, Hypertension Respiratory History: Reports: PE Genitourinary History: Reports: Urinary Incontinence Musculoskeletal History: Reports: Arthritis Other Musculoskeletal History: R knee Endocrine/Metabolic History: Reports: Hyperthyroidism - Past Surgical History HEENT Surgical History: Reports: Cataract Surgery Cardiovascular Surgical History: Reports: Coronary Artery Stent Musculoskeletal Surgical History: Reports: Knee Replacement Social & Family History - Family History Family Medical History: Noncontributory ED ROS GENERAL - Review of Systems Review Of Systems: See Below Constitutional: Denies: Fever, Chills ED EXAM, GENERAL - Physical Exam Exam: See Below Free Text/Narrative:: Trauma Code due to fall, hitting head and on coumadin. Airway is open per self. Breathing is stable. Good air exchange to all Circulation- No obvious bleeding Deformity- Swelling of the right wrist. Small abrasion to the right side of head without any bleeding Exposed and no injury or bleeding noted GCS 15 during the exam Exam Limited By: No Limitations General Appearance: Alert, WD/WN, Mild Distress (to the wrist area.) Ears: Normal Canal, Normal TMs Nose: Normal Inspection, Normal Mucosa Throat/Mouth: Normal Inspection, Normal Lips, Normal Oropharynx, No Airway Compromise Head: Atraumatic, Normocephalic, Other (Has small abrasion that is not bleeding. ) Neck: Normal Inspection, Supple, Non-Tender, Full Range of Motion Respiratory/Chest: No Respiratory Distress, Lungs Clear, Normal Breath Sounds Cardiovascular: Normal Peripheral Pulses, Regular Rate, Rhythm, No Edema GI/Abdominal: Normal Bowel Sounds, Soft, Non-Tender, No Organomegaly Back Exam: Normal Inspection, Full Range of Motion Extremities: No Pedal Edema, Normal Capillary Refill, Arm Pain (right wrist is mildly swollen and tender to palpation and ROM. Most painful to the radial side of the wrist. pulses noted equally.) Neurological: Alert, Oriented Skin Exam: Warm, Dry, Intact Course - Vital Signs Last Recorded V/S: Last Vital Signs Temp 97.2 F 05/10/19 12:29 Pulse 71 05/10/19 12:29 Resp 18 05/10/19 12:29 BP 125/54 L 05/10/19 12:29 Pulse Ox 99 05/10/19 12:29 - Orders/Labs/Meds Labs: Laboratory Tests 05/10/19 05/10/19 05/10/19 Range/Units 12:46 12:46 12:46 WBC 7.8 (5.0-10.0) 10^3/uL RBC 4.34 (4.00-5.50) 10^6/uL Hgb 12.5 (12.0-16.0) g/dL Hct 38.6 (37.0-47.0) % MCV 88.9 (82.0-94.0) fL MCH 28.8 (27.0-32.0) pg MCHC 32.4 L (33.0-38.0) g/dL RDW Coeff of Lety 15.6 H (11.0-15.0) % Plt Count 235 (150-400) 10^3/uL Neut % (Auto) 64.6 (35-85) % Lymph % (Auto) 22.6 (10-55) % Anderson % (Auto) 11.6 (0-16) % Eos % (Auto) 0.9 (0-5) % Baso % (Auto) 0.3 (0-3) % Neut # (Auto) 5.02 (1.80-7.00) 10^3/uL Lymph # (Auto) 1.75 (1.00-4.80) 10^3/uL Anderson # (Auto) 0.90 H (0.00-0.80) 10^3/uL Eos # (Auto) 0.07 (0.00-0.45) 10^3/uL Baso # (Auto) 0.02 10^3/uL PT 18.1 H (9.7-12.3) SEC INR 1.82 H (0.92-1.18) Sodium 140 (136-145) mEq/L Potassium 3.6 (3.5-5.0) mEq/L Chloride 105 (98-106) mEq/L Carbon Dioxide 25 (21-32) mmol/L BUN 36 H (7-18) mg/dL Creatinine 1.4 H (0.6-1.0) mg/dL Est Cr Clr Drug Dosing 25.35 mL/min Estimated GFR (MDRD) 36 L (>=60) mL/min Glucose 141 H D (75-99) mg/dL Calcium 9.0 (8.4-10.1) mg/dL Total Bilirubin 1.1 H (0.0-1.0) mg/dL AST 16 (15-37) U/L ALT 12 (12-78) U/L Alkaline Phosphatase 100 (46-116) U/L Total Protein 7.7 (6.4-8.2) g/dL Albumin 3.8 (3.4-5.0) g/dL Meds: Medications Discontinued Medications Generic Name Dose Route Start Last Admin Trade Name Lavonne PRN Reason Stop Dose Admin Lactated Ringer's 1,000 mls @ 50 mls/hr 05/10/19 13:40 Ringers, Lactated IV ASDIRECTED KORINA - Re-Assessments/Exams Free Text/Narrative Re-Assessment/Exam: 05/10/19 13:[address] with radiologist who relates that she does have a small right subdural hematoma. 05/10/19 13:[address] Espinoza- neurosurgery at [facility] and he states that she can stay on her coumadin and needs to be seen by him in his office in 2 weeks. Departure - Departure Time of Disposition: 13:54 Disposition: Home, Self-Care 01 Condition: Good Clinical Impression: Subdural bleeding Fx pisiform-closed Qualifiers: Encounter type: initial encounter Fracture alignment: nondisplaced Laterality: right Qualified Code(s): S62.164A - Nondisplaced fracture of pisiform, right wrist, initial encounter for closed fracture - Discharge Information *PRESCRIPTION DRUG MONITORING PROGRAM REVIEWED*: Not Applicable *COPY OF PRESCRIPTION DRUG MONITORING REPORT IN PATIENT LIDIA: Not Applicable Instructions: Cast or Splint Care, Adult, [id number], Subdural Hematoma Referrals: PCP,Unknown [Primary Care Provider] - Forms: ED Department Discharge Additional Instructions: Wear splint except when bathing See Donna Tuesday at 2 for lab- INR and then see donna If any changes in headache, blurred vision, dizziness then return to the ER immediately Appt to see Dr. Espinoza in [address] to be done prior to that time - Problem List & Annotations (1) Subdural bleeding SNOMED Code(s): 77503969 Code(s): I62.00 - NONTRAUMATIC SUBDURAL HEMORRHAGE, UNSPECIFIED Status: Acute Priority: High (2) Fx pisiform-closed SNOMED Code(s): 50154738 Code(s): S62.163A - DISP FX OF PISIFORM, UNSP WRIST, INIT FOR CLOS FX Status: Acute Priority: High Qualifiers: Encounter type: initial encounter Fracture alignment: nondisplaced Laterality: right Qualified Code(s): S62.164A - Nondisplaced fracture of pisiform, right wrist, initial encounter for closed fracture - Problem List Review Problem List Initiated/Reviewed/Updated: Yes - Assessment/Plan Plan: Will follow up with Dr. Espinoza as scheduled GCS 15 on discharge
[2019-05-10] MEDS ORDERED: Lactated Ringers 1,000 ML IV SCH (13:40)
== END 2019-05-10 14:07 | disposition home or self-care (01) ==
LOC: CC.ED 12:28
DX: S06.5X9A Traumatic subdural hemorrhage with loss of consciousness of unspecified duration, initial encounter (principal); S62.164A Nondisplaced fracture of pisiform, right wrist, initial encounter for closed fracture; S00.81XA Abrasion of other part of head, initial encounter; I10 Essential (primary) hypertension; M19.90 Unspecified osteoarthritis, unspecified site; Z86.711 Personal history of pulmonary embolism; Z86.718 Personal history of other venous thrombosis and embolism; Z79.01 Long term (current) use of anticoagulants; Z79.82 Long term (current) use of aspirin; Z79.899 Other long term (current) drug therapy; W19.XXXA Unspecified fall, initial encounter; W22.8XXA Striking against or struck by other objects, initial encounter; W01.10XA Fall on same level from slipping, tripping and stumbling with subsequent striking against unspecified object, initial encounter
CPT/HCPCS: 36415; 70450; 73110-RT; 80053; 85025; 85610; 99284; 99284-25

== ENCOUNTER 2020-02-02 14:34 | Emergency (ER) | payer MEDICARE, BC ==
[2020-02-02 14:45] VITALS: BP 105/60; PULSE 76
--- NOTE | 2020-02-02 15:13 | EDM.PDOC ---
ED HPI GENERAL MEDICAL PROBLEM - General Chief Complaint: Upper Extremity Injury/Pain Stated Complaint: right wrist pain Time Seen by Provider: 02/02/20 14:58 Source of Information: Reports: Patient History Limitations: Reports: No Limitations - History of Present Illness INITIAL COMMENTS - FREE TEXT/NARRATIVE: This patient is an 79 year old female that presents to the ER. Patient is alert and oriented. Patient reports having right wrist pain and stiffness since yesterday morning. She reports that she has not had an injury. Patient reports she was going to wait until Tuesday, but the wrist was hurting. She does report she no longer takes Wafarin, but does take Xarelto now. She also reports she takes an ASA 325 mg daily. Denies fever, vomiting, redness, swelling, heat at the wrist. Onset Date: 02/01/20 Duration: Day(s): (1) Location: Reports: Upper Extremity, Left Quality: Reports: Ache Severity: Moderate Improves with: Reports: Immobilization, Medication Worsens with: Reports: Movement Associated Symptoms: Reports: No Other Symptoms. Denies: Confusion, Chest Pain , Cough, cough w sputum, Diaphoresis, Fever/Chills, Headaches, Loss of Appetite , Malaise, Nausea/Vomiting, Rash, Seizure, Shortness of Breath (denies today. clinic note says was seen on 01/30 for this complaint. ), Syncope, Weakness Treatments DAMAGE INSIDE ADJUSTER: Reports: Acetaminophen Right Wrist Pain Score (Numeric/FACES): 10 - Related Data Allergies Allergy/AdvReac Type Severity Reaction Status Date / Time No Known Allergies Allergy Verified 02/02/20 14:36 Home Meds: Home Meds Levothyroxine 112 mcg PO DAILY 04/07/14 [History] Furosemide [Lasix] 20 mg PO DAILY 04/30/14 [History] Cholecalciferol (Vitamin D3) [Vitamin D3] 5,000 units PO DAILY 04/16/15 [History ] atorvaSTATin Calcium [Atorvastatin Calcium] 10 mg PO BEDTIME 04/16/15 [History] Aspirin [Adult Low Dose Aspirin EC] 81 mg PO DAILY 04/25/16 [History] Metoprolol Succinate 25 mg PO DAILY 04/25/16 [History] Losartan [Cozaar] 25 mg PO DAILY 06/02/18 [History] Donepezil HCl [Aricept] 5 mg PO DAILY 02/02/20 [History] Rivaroxaban [Xarelto] 10 mg PO DAILY 02/02/20 [History] Past Medical History HEENT History: Reports: Cataract Cardiovascular History: Reports: Blood Clots/VTE/DVT, Hypertension Respiratory History: Reports: PE Genitourinary History: Reports: Urinary Incontinence Musculoskeletal History: Reports: Arthritis Other Musculoskeletal History: R knee Endocrine/Metabolic History: Reports: Hyperthyroidism - Past Surgical History HEENT Surgical History: Reports: Cataract Surgery Cardiovascular Surgical History: Reports: Coronary Artery Stent Musculoskeletal Surgical History: Reports: Knee Replacement Social & Family History - Family History Family Medical History: Noncontributory - Tobacco Use Smoking Status *Q: Never Smoker - Caffeine Use Caffeine Use: Reports: Coffee Review of Systems - Review of Systems Review Of Systems: See Below Constitutional: Reports: No Symptoms Eyes: Reports: No Symptoms Ears: Reports: No Symptoms Nose: Reports: No Symptoms Mouth/Throat: Reports: No Symptoms Respiratory: Reports: No Symptoms Cardiovascular: Reports: No Symptoms GI/Abdominal: Reports: No Symptoms Genitourinary: Reports: No Symptoms Musculoskeletal: Reports: Joint Pain (right wrist thumb side. ). Denies: Joint Swelling Skin: Reports: No Symptoms Neurological: Reports: No Symptoms Psychiatric: Reports: No Symptoms ED EXAM, GENERAL - Physical Exam Exam: See Below Exam Limited By: No Limitations General Appearance: Alert, WD/WN, No Apparent Distress Eye Exam: Bilateral Eye: Normal Inspection, PERRL Ears: Normal External Exam, Normal Canal, Hearing Grossly Normal, Normal TMs Ear Exam: Bilateral Ear: Auricle Normal, Canal Normal, TM normal Nose: Normal Inspection, Normal Mucosa, No Blood Throat/Mouth: Normal Inspection, Normal Lips, Normal Gums, Normal Oropharynx, Normal Voice, No Airway Compromise Head: Atraumatic, Normocephalic Neck: Normal Inspection, Supple, Non-Tender, Full Range of Motion Respiratory/Chest: No Respiratory Distress, Lungs Clear, Normal Breath Sounds, No Accessory Muscle Use Cardiovascular: Normal Peripheral Pulses, Regular Rate, Rhythm, No Edema, No Gallop, No JVD, No Murmur, No Rub Peripheral Pulses: 2+: Radial (L), Radial (R) Extremities: Normal Inspection, Normal Range of Motion, No Pedal Edema, Normal Capillary Refill, Other (right wrist at the radial side pain, mild tenderness. Worse with ROM. No redness, heat, wounds, swelling, obvious injury. Neurovascular intact. Pulses +2, cap refill <2 sec. Sensory/motor function intact. ). No: Slow Capillary Refill, Joint Swelling, Arm Pain, Limited Range of Motion, Increased Warmth, Mottled, Pallor, Redness Neurological: Alert, Oriented, Normal Cognition, Normal Gait Psychiatric: Normal Affect, Normal Mood Skin Exam: Warm, Dry, Intact, Normal Color, No Rash ED TRAUMA EXTREMITY PROCEDURES - Splinting Right Upper Extremity Pre-Procedure NV Status: Normal Post-Procedure NV Status: Normal Splint Material: Velcro Splint Design: Other (thumb wrist splint) Applied & Form Fitted By: Nurse Provider Post-Splint Application NV Check: NV Status Normal, Good Position Complications: No Course - Vital Signs Last Recorded V/S: Last Vital Signs Temp 96.7 F L 02/02/20 14:39 Pulse 76 02/02/20 14:39 Resp 18 02/02/20 14:39 BP 105/60 02/02/20 14:39 Pulse Ox 99 02/02/20 14:39 - Orders/Labs/Meds Orders: Active Orders 24 hr Category Date Time Status Wrist Comp Min 3V Rt [CR] Stat Exams 02/02/20 14:59 Taken - Radiology Interpretation Free Text/Narrative:: Right wrist Xray: No fracture, no dislocation. - Re-Assessments/Exams Free Text/Narrative Re-Assessment/Exam: 02/02/20 15:19 Patient has history of subdural hematoma. She is also on ASA 35mg and also Xarelto. I will not prescribe any NSAID to this patient. As the bleeding risk is to great. I discuss Risk vs Benefits with patient about NSAIDS and Steroid use. I do not believe the benefits outweigh the risk, therefore, I will not prescribe and discouraged from OTC use. Patient understands and agrees with only use of Tylenol, Ice, Splint at this time. Also, with history of subdural and elderly and possible dementia: I will not prescribe narcotic pain medication for this at this time. I educated the patient to followup with her PCP if pain continues to further discuss risk vs benefits further. Patient does report the wrist splint makes it feel better. Departure - Departure Time of Disposition: 15:28 Disposition: Home, Self-Care 01 Condition: Good Clinical Impression: Osteoarthritis Qualifiers: Osteoarthritis location: wrist Osteoarthritis type: primary Laterality: right Qualified Code(s): M19.031 - Primary osteoarthritis, right wrist - Discharge Information *PRESCRIPTION DRUG MONITORING PROGRAM REVIEWED*: Not Applicable *COPY OF PRESCRIPTION DRUG MONITORING REPORT IN PATIENT LIDIA: Not Applicable Instructions: Preventing Osteoarthritis, Adult, Arthritis, [id number] Forms: ED Department Discharge Additional Instructions: Followup with your primary care provider Return to the ER for worsening of condition or any emergent concerns such as redness, fever, vomiting Ice to the area Tylenol for pain Wrist splint as needed for pain Sepsis Event Note - Evaluation Sepsis Screening Result: No Definite Risk - Focused Exam Vital Signs: Vital Signs Temp Pulse Resp BP Pulse Ox 02/02/20 14:39 96.7 F L 76 18 105/60 99 Date Exam was Performed: 02/02/20 Time Exam was Performed: 15:33 - My Orders Last 24 Hours: My Active Orders 02/02/20 14:59 Wrist Comp Min 3V Rt [CR] Stat - Assessment/Plan Last 24 Hours: My Active Orders 02/02/20 14:59 Wrist Comp Min 3V Rt [CR] Stat Plan: PLEASE SEE RN NOTE FOR PFSH.
== END 2020-02-02 15:34 | disposition home or self-care (01) ==
LOC: CC.ED 14:34
DX: M19.031 Primary osteoarthritis, right wrist (principal); E05.90 Thyrotoxicosis, unspecified without thyrotoxic crisis or storm; Z95.5 Presence of coronary angioplasty implant and graft; Z79.82 Long term (current) use of aspirin; Z79.899 Other long term (current) drug therapy
CPT/HCPCS: 73110-RT; 99283; 99283-25

== ENCOUNTER 2020-04-23 08:22 | Emergency (ER) | payer MEDICARE, BC ==
[2020-04-23 08:57] LABS: CHLORIDE,CL 106 mEq/L (98-106); SODIUM,NA 140 mEq/L (136-145)
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
[2020-04-23] MEDS: fentaNYL 100 MCG/2 ML SDV IVPUSH ONE (09:17)
[2020-04-23] MEDS: Acetaminophen/HYDROcodone 325-5 MG Tab PO ONE (09:31)
[2020-04-23 09:33] VITALS: BP 98/56; PULSE 61
== END 2020-04-23 10:11 | disposition critical access hospital (66) ==
LOC: CC.ED 08:22
DX: S52.502A Unspecified fracture of the lower end of left radius, initial encounter for closed fracture (principal); S52.602A Unspecified fracture of lower end of left ulna, initial encounter for closed fracture; I10 Essential (primary) hypertension; M19.90 Unspecified osteoarthritis, unspecified site; E05.90 Thyrotoxicosis, unspecified without thyrotoxic crisis or storm; Z79.82 Long term (current) use of aspirin; Z86.718 Personal history of other venous thrombosis and embolism; Z79.01 Long term (current) use of anticoagulants; Z79.899 Other long term (current) drug therapy; W01.0XXA Fall on same level from slipping, tripping and stumbling without subsequent striking against object, initial encounter
CPT/HCPCS: 25560; 25605; 29105; 36415; 70450; 73110-LT; 80053; 81001; 84484; 85025; 86140; 96374; 99283; 99285-25; A9270-GY; J3010

== ENCOUNTER 2023-02-12 21:09 | Emergency (ER) | payer MEDICARE, BC ==
[2023-02-12 21:52] LABS: BASOPHILS ABSOLUTE AUTO 0.91 10^3/uL (0.00-0.50); BASOPHILS PERCENT AUTO 5.9 % (0-1); EOSINOPHILS ABSOLUTE AUTO 0.14 10^3/uL (0.00-1.50); EOSINOPHILS PERCENT AUTO 0.9 % (0-6); HEMATOCRIT 40.9 % (37.0-47.0); HEMOGLOBIN 13.1 g/dL (12.0-16.0); IMMATURE GRAN ABSOLUTE AUTO 0.05 10^3/uL (0.00-0.49); IMMATURE GRAN PERCENT AUTO 0.3 % (0.0-4.9); LYMPHOCYTES ABSOLUTE AUTO 1.19 10^3/uL (0.60-5.00); LYMPHOCYTES PERCENT AUTO 7.7 % (24-44); MEAN CORPUSCULAR HEMOGLOBIN 28.7 pg (27.0-32.0); MEAN CORPUSCULAR VOLUME 89.7 fL (83.0-97.0); MONOCYTES ABSOLUTE AUTO 0.37 10^3/uL (0.00-1.50); MONOCYTES PERCENT AUTO 2.4 % (0-10); NEUTROPHILS ABSOLUTE AUTO 12.76 x10^3/uL (1.80-8.00); NEUTROPHILS PERCENT AUTO 82.8 % (41-71); PLATELET COUNT,PLT 239 10^3/uL (150-400); RED BLOOD CELL COUNT 4.56 x10^6/uL (4.00-5.50); WHITE BLOOD CELL COUNT,WBC 15.4 10^3/uL (4.0-11.0)
[2023-02-12] MEDS: fentaNYL 50 MCG/ML SDV IVPUSH ONE (22:05)
[2023-02-12 22:08] LABS: ALANINE AMINOTRANSFERASE,ALT 22 U/L (12-78); ALBUMIN 3.6 g/dL (3.4-5.0); ALKALINE PHOSPHATASE 132 U/L (46-116); ASPARTATE AMNIOTRANSFERASE,AST 20 U/L (15-37); BILIRUBIN TOTAL 0.7 mg/dL (0.0-1.0); BLOOD UREA NITROGEN,BUN 36 mg/dL (7-18); CALCIUM 9.3 mg/dL (8.4-10.1); CARBON DIOXIDE,CO2 22 mmol/L (21-32); CHLORIDE,CL 104 mEq/L (98-106); CREATINE KINASE,CK 41 U/L (21-215); CREATININE 1.4 mg/dL (0.6-1.0); GLUCOSE RANDOM 170 mg/dL (75-99); SODIUM,NA 141 mEq/L (136-145)
[2023-02-12] MEDS: Ondansetron 4 MG/2 ML SDV IVPUSH STA (22:08)
[2023-02-12 22:09] LABS: ESTIMATED GFR 37 mL/min (>=60)
[2023-02-12 22:59] LABS: APPEARANCE,URINE CLEAR (CLEAR); BILIRUBIN,URINE NEGATIVE (NEGATIVE); COLOR,URINE YELLOW (YELLOW); GLUCOSE,URINE NEGATIVE (NEGATIVE); KETONES,URINE NEGATIVE (NEGATIVE); LEUKOCYTE ESTERASE,URINE SMALL (NEGATIVE); NITRITE,URINE POSITIVE (NEGATIVE); OCCULT BLOOD,URINE SMALL (NEGATIVE); PH,URINE 5.5 (4.5-8.0); PROTEIN,URINE NEGATIVE (NEGATIVE); UROBILINOGEN,URINE 0.2 EU/dL (0.2-1.0)
[2023-02-12 23:02] LABS: AMPHETAMINES,URINE NEGATIVE (NEGATIVE); BARBITURATES,URINE NEGATIVE (NEGATIVE); BENZODIAZEPINE,URINE NEGATIVE (NEGATIVE); MDMA (ECSTASY), URINE NEGATIVE (NEGATIVE); METHADONE,URINE NEGATIVE (NEGATIVE); METHAMPHETAMINES,URINE NEGATIVE (NEGATIVE); OPIATES,URINE NEGATIVE (NEGATIVE); OXYCODONE,URINE NEGATIVE (NEGATIVE); PHENCYCLIDINE,URINE NEGATIVE (NEGATIVE); TCA,URINE NEGATIVE (NEGATIVE)
[2023-02-12 23:20] LABS: BACTERIA,URINE MODERATE /HPF (NOT SEEN); EPITHELIAL CELLS,URINE FEW /HPF (NOT SEEN); MUCUS,URINE OCCASIONAL /HPF (NOT SEEN); RBC,URINE 0-5 /HPF (0-5)
[2023-02-13] MEDS: cefTRIAXone 1 GM Vial IVPUSH ONE (00:32)
[2023-02-13] MEDS: Morphine 4 MG/ML VIAL IVPUSH ONE (00:33)
[2023-02-13] MEDS: Morphine 2 MG/ML SYRINGE IVPUSH ONE (00:33)
[2023-02-13 00:47] VITALS: BP 172/90; PULSE 110
== END 2023-02-13 00:05 ==
LOC: CC.ED 21:09
DX: S72.141A Displaced intertrochanteric fracture of right femur, initial encounter for closed fracture (principal); N39.0 Urinary tract infection, site not specified; I10 Essential (primary) hypertension; E05.90 Thyrotoxicosis, unspecified without thyrotoxic crisis or storm; Z79.82 Long term (current) use of aspirin; Z79.899 Other long term (current) drug therapy; Z79.01 Long term (current) use of anticoagulants; W18.30XA Fall on same level, unspecified, initial encounter
CPT/HCPCS: 36415; 51702; 70450; 71045; 72125; 72192; 80053; 80305-QW; 81001; 82550; 83605; 83735; 84484; 85025; 85730; 87086; 87088; 87186; 93005; 93010; 96374; 96375; 99284; 99285-25; J0696; J2405; J3010

== ENCOUNTER 2023-06-16 10:55 | Emergency (ER) | payer MEDICARE, BC ==
[2023-06-16] MEDS ORDERED: Ondansetron 4 MG Tab.DIS PO ONE (11:04)
[2023-06-16 11:21] LABS: HEMATOCRIT 40.6 % (37.0-47.0); HEMOGLOBIN 13.1 g/dL (12.0-16.0); MEAN CORPUSCULAR HEMOGLOBIN 27.2 pg (27.0-32.0); MEAN CORPUSCULAR HGB CONC 32.3 g/dL (32.0-36.0); MEAN CORPUSCULAR VOLUME 84.2 fL (83.0-97.0); PLATELET COUNT,PLT 267 10^3/uL (150-400); RED BLOOD CELL COUNT 4.82 x10^6/uL (4.00-5.50); WHITE BLOOD CELL COUNT,WBC 12.6 10^3/uL (4.0-11.0)
[2023-06-16 11:34] LABS: ALBUMIN 3.7 g/dL (3.4-5.0); BILIRUBIN TOTAL 2.5 mg/dL (0.0-1.0); CALCIUM 9.6 mg/dL (8.4-10.1); CREATININE 1.5 mg/dL (0.6-1.0); EST CRCL DRUG DOSING (CG) 21.07 mL/min; MAGNESIUM 2.3 mg/dL (1.8-2.4); POTASSIUM,K 3.6 mEq/L (3.5-5.0)
[2023-06-16 11:46] LABS: EOSINOPHILS ABSOLUTE MAN 0.13 10^3/uL (0.00-0.45); EOSINOPHILS PERCENT MAN 1 % (0-5); LYMPHOCYTES ABSOLUTE MAN 1.13 10^3/uL (1.00-4.80); LYMPHOCYTES PERCENT MAN 9 % (21-55); MONOCYTES ABSOLUTE MAN 0.63 10^3/uL (0.00-0.80); MONOCYTES PERCENT MAN 5 % (2-12); NEUTROPHILS ABSOLUTE MAN 10.71 10^3/uL (1.80-7.00); SEG NEUTROPHILS PERCENT MAN 85 % (35-85)
[2023-06-16 12:03] LABS: APPEARANCE,URINE CLOUDY (CLEAR); BILIRUBIN,URINE NEGATIVE (NEGATIVE); COLOR,URINE YELLOW (YELLOW); GLUCOSE,URINE NEGATIVE (NEGATIVE); KETONES,URINE NEGATIVE (NEGATIVE); LEUKOCYTE ESTERASE,URINE LARGE (NEGATIVE); NITRITE,URINE POSITIVE (NEGATIVE); OCCULT BLOOD,URINE LARGE (NEGATIVE); PH,URINE 5.5 (4.5-8.0); PROTEIN,URINE 100 mg/dL (NEGATIVE); UROBILINOGEN,URINE 0.2 EU/dL (0.2-1.0)
[2023-06-16 12:12] LABS: BACTERIA,URINE MANY /HPF (NOT SEEN); SQUAMOUS EPITHELIAL CELLS,UR FEW /HPF (NOT SEEN); WBC,URINE PACKED /HPF (0-5)
[2023-06-16 12:17] VITALS: BP 143/86; PULSE 104
[2023-06-16] MEDS ORDERED: cefTRIAXone 1 GM Vial IM ONE (12:21)
== END 2023-06-16 12:59 | disposition home or self-care (01) ==
LOC: CC.ED 10:55
DX: N39.0 Urinary tract infection, site not specified (principal); I10 Essential (primary) hypertension; Z95.5 Presence of coronary angioplasty implant and graft; Z20.822 Contact with and (suspected) exposure to COVID-19; Z79.02 Long term (current) use of antithrombotics/antiplatelets; Z79.899 Other long term (current) drug therapy
CPT/HCPCS: 36415; 80053; 81001; 83735; 85025; 87086; 87088; 87186; 96372; 99284; A9270-GY; J0696; U0002